=== PATIENT | male | born 1990 | race Caucasian/White ===

== ENCOUNTER 2022-07-02 19:48 | Emergency (ER) | payer OTHER ==
[~2022-07-02] VITALS: Ht 182.9 cm; Wt 158.8 kg
[~2022-07-02 19:48] MED LIST: AMOX500 PO; ASCO500 PO; PROCODE120 PO; THERAFLU
[2022-07-02 19:53] VITALS: BP 160/107
[2022-07-02] MEDS ORDERED: AMOCLA875 PO (21:55)
== END 2022-07-02 22:10 | disposition home or self-care (01) ==
LOC: ER 19:48
DX: K04.7 Periapical abscess without sinus (principal)
CPT/HCPCS: A9270; J1885

== ENCOUNTER 2024-10-19 16:56 | Emergency (ER) | payer OTHER ==
[~2024-10-19] VITALS: Ht 182.9 cm; Wt 158.8 kg
[~2024-10-19 16:56] MED LIST changes: +AMOCLA875 PO
[2024-10-19 17:46] VITALS: BP 150/100
[2024-10-19] MEDS ORDERED: OXAYDO5 M1 PO ×2 (17:54→17:59)
[2024-10-19] MEDS ORDERED: AMOCLA875 PO ×2 (17:54→17:59)
== END 2024-10-19 18:01 | disposition home or self-care (01) ==
LOC: ER 16:56
DX: K08.89 Other specified disorders of teeth and supporting structures (principal); K05.30 Chronic periodontitis, unspecified
CPT/HCPCS: 99282